=== PATIENT | female | born 1950 | race Caucasian/White ===

== ENCOUNTER 2016-12-19 07:32 | Inpatient (IN) | payer OTHER, BC ==
[2016-11-24 09:08] VITALS: BMI 24.0
--- NOTE | 2016-11-24 09:47 | PAT Medication Instructions ---
Service Date Nov 24, 2016. Current Home Medication List Acetaminophen (Tylenol), 650 MG PO PRN Ibuprofen (Advil), 400 MG PO PRN [Boswellian Complex], 1 TAB PO 3XWEEK Medication Instructions For Your Scheduled Surgery - Check with surgeon for instructions: Ibuprofen (Advil), 400 MG PO PRN - Hold the following medications 2 weeks prior to surgery: [Boswellian Complexoswellian Complex], 1 TAB PO 3XWEEK - Take the following medications the morning of surgery with a sip of water: Acetaminophen (Tylenol), 650 MG PO PRN (if needed) - Take the following medications as scheduled the night before surgery: Acetaminophen (Tylenol), 650 MG PO PRN (if needed) If you have any questions please call us at [phone] or [phone] or [phone]
[2016-11-24 10:37] LABS: BASO % 1.3 %; BASO ABS # 0.07 K/uL (0-0.2); COMPLETE YES; EOS % 4.7 %; HEMATOCRIT 43.5 % (37-47); LYMPH % 20.5 %; LYMPH ABS # 1.08 K/uL (1.2-3.4); MEAN CELL VOLUME 91.6 fL (80-100); MEAN CORPUSCULAR HEMOGLOBIN 30.1 pg (25-34); MEAN CORPUSCULAR HGB CONC 32.9 g/dl (32-36); MEAN PLATELET VOLUME 10.3 fL (7.4-10.4); NEUT % 63.5 %; PLATELET COUNT 235 K/uL (130-400); RED BLOOD COUNT 4.75 M/uL (4.2-5.4); WHITE BLOOD COUNT 5.28 K/uL (4.8-10.8)
[2016-11-24 10:43] LABS: URINE APPEARANCE CLEAR (CLEAR); URINE BILIRUBIN NEG (NEG); URINE COLOR YELLOW; URINE EPITHELIAL CELL AUTO >30 /lpf (0-5); URINE NITRITE NEG (NEG); URINE PH 7.5 (4.5-7.5); URINE SPECIFIC GRAVITY 1.016 (1.000-1.030); UROBILINOGEN NEG (NEG)
[2016-11-24 10:44] LABS: BUN/CREATININE RATIO 25.2 (10-20); CALCIUM 9.3 mg/dl (8.5-10.1); CREATININE 0.74 mg/dl (0.60-1.20); POTASSIUM 4.8 mmol/L (3.5-5.1)
[2016-11-24 10:45] LABS: INR 0.9 (0.9-1.1)
[2016-11-24 10:53] LABS: MANUAL MICROSCOPIC REQUIRED? NO; REVIEW REQ? NO
[2016-11-24 10:57] LABS: ESTIMATED AVERAGE GLUCOSE 103 mg/dl; HA1C FLAG Normal (Normal)
--- NOTE | 2016-11-24 11:01 | DIAGNOSTIC IMAGING REPORT ---
CHEST 2 VIEWS ROUTINE CLINICAL HISTORY: PAT preoperative evaluation COMPARISON STUDY: No previous studies for comparison. FINDINGS: The bones soft tissues and hemidiaphragms are normal. The cardiomediastinal silhouette is normal. The lungs are clear. The pulmonary vasculature is normal. IMPRESSION: Negative chest. The above report was generated using voice recognition software. It may contain grammatical, syntax or spelling errors. Electronically signed by: Walter Cole M.D. 11/24/2016 11:00 AM Dictated Date/Time: 11/24/2016 10:59 AM
--- NOTE | 2016-12-17 22:05 | HISTORY & PHYSICAL EXAMINATION ---
DATE OF ADMISSION: 12/19/2016 SUBJECTIVE CHIEF COMPLAINT: Left knee pain. HISTORY OF PRESENT ILLNESS: The patient is a 66-year-old female who complains of left knee pain. She describes the symptoms as being chronic and nontraumatic in nature. She states that the symptoms occur constantly and described as aching and sharp. She has tried cortisone injections, nonsteroidal anti-inflammatories and physical therapy with no relief. This affects her activities of daily living. She would like to proceed with a left total knee arthroplasty. PAST MEDICAL HISTORY: Significant for a left bundle branch block, anxiety, osteoarthritis and GERD. PAST SURGICAL HISTORY: Tonsillectomy, right total knee arthroplasty, and appendectomy. SOCIAL HISTORY: She drinks 1-2 beers a day. Denies smoking or tobacco use. Denies IV or illegal drug use. She lives in a [address] house and she is currently retired. FAMILY HISTORY: Noncontributory. ALLERGIES: CLINDAMYCIN AND SHE DEVELOPS A RASH. MEDICATIONS: lorazepam 0.5 mg 1-2 tablets every 6 hours as needed for anxiety. REVIEW OF SYSTEMS: She denies headaches, fevers, chills, double vision, blurry vision, sore throat, cough, chest pain, nausea, vomiting, diarrhea, constipation, numbness, tingling, fatigue, urinary difficulties, thoughts to harm herself or harm others depression. She is positive for left knee joint pain and joint stiffness. OBJECTIVE: GENERAL APPEARANCE: The patient is a 66-year-old female sitting in no acute distress. She is well dressed, well nourished. She is awake, alert and oriented x3. VITAL SIGNS: She is 5 feet 8 inches tall, 158 pounds. Blood pressure is 106/62. HEENT: Normocephalic, atraumatic. Extraocular movements are intact. Mucosa was moist. No septal deviation. NECK: Supple with no lymphadenopathy, no JVD, no thyromegaly. HEART: Regular rate and rhythm, no murmurs or gallops. LUNGS: Clear to auscultation. No wheezing or rhonchi. ABDOMEN: Soft, nontender, nondistended. Normal bowel sounds, no hepatosplenomegaly. EXTREMITIES: Paying particular attention to the left knee, she is able to actively extend to 0 degrees and actively flex to 100 degrees. She has medial joint line tenderness and ligaments are intact. NEUROLOGIC: Cranial nerves II-XII are intact. Pulses were compared bilaterally and were equal. IMAGING: X-rays of the left knee demonstrate severe osteoarthritic change of the medial compartment and bone on bone in medial compartment. IMPRESSION: Primary osteoarthritis of the left knee. PLAN: The patient is scheduled for a left total knee arthroplasty. This affects her activities of daily living and she has failed conservative therapies including cortisone injections, nonsteroidal anti-inflammatories and physical therapy. She would like to proceed with a left total knee arthroplasty. Risks and benefits to surgery were discussed with the patient and included but not limited to infection, DVT, pain, stiffness, need for revision surgeries, failure to relieve all symptoms, damage to blood vessels, damage to nerves, PE and and anesthesia risks were all discussed with the patient. She understands these risks and wishes to proceed. All questions were answered to her satisfaction. DVT prophylaxis will be aspirin 81 mg b.i.d. for 30 days. Discharge will be home with home health. RENNY
[~2016-12-19] VITALS: Ht 172.7 cm; Wt 71.7 kg
[2016-12-19] VITALS (7 sets, daily range): BP systolic 112–139; BP diastolic 68–87; PULSE 58–64; TEMP 34.8–36.8; O2SAT 97–100; Ht 172.7 cm; Wt 71.7 kg
[2016-12-19] MEDS: TRANEXAMIC ACID INJ 1,000 MG in SODIUM CHLORIDE 0.9% 100ML 100 ML IV SCH ×2 (06:30→08:43)
[~2016-12-19 07:32] MED LIST: ACET-1311 PO; ACETAMINOPHEN 500 MG TAB PO SCH; CEFAZOLIN 2000 MG/60 ML D5W 60 ML IV SCH; CeleBREX 200 MG CAP PO SCH; DEXAMETHASONE 4 MG TAB PO SCH; FAMOTIDINE 20 MG TAB PO SCH; FENTANYL CITRATE INJ 50 MCG/1 ML 2 ML VIAL ONE; GABAPENTIN 300 MG CAP PO SCH; IBUP-1050 PO; LACTATED RINGER'S 1000ML IV SCH; LACTATED RINGER'S 500 ML IV SCH; METOCLOPRAMIDE HCL 10 MG TAB PO SCH; MIDAZOLAM HCL 1 MG/ML 2ML VIAL ONE; ROPIVACAINE 5MG/ML 30 ML 150 MG, BUPIVACAINE/EPINEPHR 0.5% MPF 30 ML, KETOROLAC TROMETH... INFIL SCH; TRAMADOL HCL 50 MG TAB PO SCH; [UNRECOGNIZED DRUG - OTHER] PO
--- NOTE | 2016-12-19 07:56 | History & Physical Bridge Note ---
H&P Re-Evaluation Bridge Note: I have examined the patient, reviewed the History & Physical and in the interval since the performance of the History & Physical I have noted the following changes of clinical significance: No changes noted
[2016-12-19] MEDS ORDERED: BUPIVACAINE 0.5 % 5 MG/1 ML PF 10ML VIAL ONE (07:58)
[2016-12-19] MEDS ORDERED: BUPIVACAINE 0.25% 30 ML VIAL ONE (07:58)
[2016-12-19] MEDS ORDERED: ORTHO JOINT ANESTHETIC ONE (08:13)
[2016-12-19] MEDS ORDERED: POVIDONE-IODINE OP SOLN 30 ML BTL ONE (08:13)
[2016-12-19] MEDS ORDERED: BACITRACIN 50000 UNIT VIAL ONE (08:14)
[2016-12-19] MEDS ORDERED: EpHEDrine SULFATE INJ 50 MG/ML AMP IV PRN (08:45)
[2016-12-19] MEDS ORDERED: FENTANYL CITRATE INJ 50 MCG/1 ML 2 ML VIAL IV PRN (08:45)
[2016-12-19] MEDS ORDERED: ONDANSETRON INJ 2 MG/ML 2 ML VIAL IV PRN (08:45)
[2016-12-19] MEDS ORDERED: ATROPINE SULFATE 0.1 MG/ML 5ML SYR IV PRN (08:45)
[2016-12-19] MEDS ORDERED: MIDAZOLAM HCL 1 MG/ML 2ML VIAL ONE (09:13)
[2016-12-19] MEDS ORDERED: PROPOFOL IV EMULSION 10 MG/ML 20 ML VIAL IV ONE ×2 (09:59→10:11)
--- NOTE | 2016-12-19 10:39 | [facility] Operative Report ---
Operative Report Operative Date Dec 19, 2016. Pre-Operative Diagnosis Primary osteoarthritis of the left knee Post-Operative Diagnosis Primary osteoarthritis of the left knee Procedure(s) Performed Left Total Knee Arthroplasty Surgeon Dr. Steve Ocasio Financial Wellness Coach Surgeon(s) Adam Reynolds PA-C Estimated Blood Loss 50 mL Findings Above Specimens Permanent specimens A: Left knee bone and tissue Drains none Anesthesia spinal plus adductor canal block Complication(s) None Disposition Recovery Room / PACU Indications 66-year-old female with long-standing degenerative joint disease of left knee. She has failed conservative measures including injection and anti-inflammatory and rehabilitation. She has end-stage arthritis like to proceed with a left total knee arthroplasty. Description of Procedure Risks benefits and alternatives of surgery including but not limited to infection DVT pain stiffness need for surgery damage to blood vessels damage to nerves or risks of anesthesia were discussed with the patient and she wished to proceed. Patient was identified in the laterality was confirmed and marked. She received a preoperative antibiotic is also a spinal anesthetic and a adductor canal block. A well-padded tourniquet was applied and then the limb was prepped and draped in standard manner with ChloraPrep. The tourniquet was not utilized during the case. I made a standard anterior incision. I sharply incised the skin then utilized Bovie electrocautery as well as the aqua mantis to achieve hemostasis. I made a medial parapatellar arthrotomy immobilized the patella laterally. I then excised the anterior horns of the medial and lateral meniscus as well as the infrapatellar fat pad. I elevated a portion of the MCL off of the tibia. I then pinned into place a patient-matched distal femoral cutting guide and made my distal femoral resection. I then pinned into place a size the 5 in 1 cutting guide. I made my anterior, posterior and chamfer cuts. I then excised the cruciates and the remaining portions of the menisci. I then pinned into place a patient- matched tibial cutting guide and made my tibial resection. I then pinned into place the patient matched tibial cutting guide and used a alignment kenya to confirm rotation. I then cut for the post. Utilizing a lamina c 40a crew chief and I then removed posterior osteophytes off the femur. I then placed a trial femur into position and cut for the trochlear component. I then sequentially trialed the polyethylene until there was good soft tissue balancing and range of motion. I then prepared the patella with a freehand cut utilizing sagittal saw. I sized and drilled for the patella. There was good tracking to the patella no lateral release was needed. All the trial components were removed. The deep tissues were anesthetized with and ortho mix solution. Then with Simplex HV with gentamicin cement I cemented my definitive components. Definitive components, [employer] Journey 2: Femur 6 Tibia for Poly 10 Patella 35 oval A betadine soak was performed. The arthrotomy was closed with interrupted #1 Vicryl suture subcutaneous tissue was closed with interrupted 2-0 Vicryl suture. The skin was closed with Prineo. A sterile dressing was applied. All needle and sponge counts were correct at the end of the procedure patient was transferred to the PACU in stable condition without apparent complication. The PA-C was necessary for assistance with procedure for assistance in positioning, prepping, draping, retraction and closure. I attest to the content of the Intraoperative Record and any orders documented therein. Any exceptions are noted below.
[2016-12-19] MEDS ORDERED: MAGNESIUM HYDROXIDE SUSP 30 ML UDC PO PRN (11:15)
[2016-12-19] MEDS ORDERED: ALUMINUM/MAGNESIUM/SIMETH (MAALOX MAX) 30 ML UDC PO PRN (11:15)
[2016-12-19] MEDS ORDERED: MoRPHine SULFATE 4 MG/ML 1 ML CARP\\VIAL IV PRN (11:15)
[2016-12-19] MEDS ORDERED: BISACODYL 10 MG SUPP PR PRN (11:15)
[2016-12-19] MEDS ORDERED: MoRPHine SULFATE 2 MG/ML CARP IV PRN (11:15)
[2016-12-19] MEDS ORDERED: OXYCODONE HCL IR 5 MG TAB (IMMEDIATE RELEASE) PO PRN (11:15)
--- NOTE | 2016-12-19 11:33 | Anesthesiology Progress Note ---
Anesthesia Post Op Note Date & Time Dec 19, 2016 at 11:33 Vital Signs Pain Intensity: 0 Vital Signs Past 12 Hours Date Time Temp Pulse Resp B/P (MAP) Pulse Ox O2 Delivery O2 Flow Rate FiO2 12/19/16 11:25 59 18 116/67 100 Oxymask 10 12/19/16 11:15 59 18 122/68 100 Oxymask 10 12/19/16 11:05 36.1 63 18 118/62 97 Oxymask 10 12/19/16 08:05 36.4 61 16 129/87 100 Room Air Notes Mental Status: alert / awake / arousable, participated in evaluation Pt Amnestic to Procedure: Yes Nausea / Vomiting: adequately controlled Pain: adequately controlled Airway Patency, RR, SpO2: stable & adequate BP & HR: stable & adequate Hydration State: stable & adequate Neuraxial Anesthesia: was administered, sensory block is resolving Anesthetic Complications: no major complications apparent
--- NOTE | 2016-12-19 11:38 | DIAGNOSTIC IMAGING REPORT ---
LEFT KNEE 1 OR 2 VIEWS ROUTINE CLINICAL HISTORY: 66 years-old Female presenting with degenerative change of the left knee status post arthroplasty. TECHNIQUE: Frontal and lateral views of the left knee were obtained. COMPARISON: None. FINDINGS: Postsurgical changes of total left knee arthroplasty with patellar resurfacing. Intra-articular and soft tissue emphysema noted. No hardware complication. No acute fracture or malalignment. Two stippled calcific lesions noted more proximally in the left femur. IMPRESSION: 1. Expected postsurgical changes status post left total knee arthroplasty with patellar resurfacing. 2. Two calcified lesions in the more proximal left femur are most suggestive of chondroid lesions. Electronically signed by: Steve Toussaint M.D. 12/19/2016 11:37 AM Dictated Date/Time: 12/19/2016 11:35 AM
[2016-12-19] MEDS: KETOROLAC TROMETHAMINE 15 MG/ML VIAL IV. SCH ×3 (12:57→23:36)
[2016-12-19] MEDS: D5W AND 1/2NSS + 20MEQ KCL 1,000 ML IV SCH ×2 (13:05→22:16)
[2016-12-19] MEDS: FERROUS GLUCONATE 324 MG TAB PO SCH ×2 (13:57→18:12)
[2016-12-19] MEDS: CEFAZOLIN IV 1,000 MG in DEXTROSE 5% 50ML 50 ML IV SCH ×2 (15:34→23:36)
[2016-12-19] MEDS: ACETAMINOPHEN 500 MG TAB PO SCH ×2 (15:35→23:37)
[2016-12-19] MEDS: ASPIRIN 81 MG ECTAB PO SCH (20:51)
[2016-12-19] MEDS: OXYCODONE HCL 10 MG TABCR (OXYCONTIN) PO SCH (20:51)
[2016-12-19] MEDS: DOCUSATE SODIUM 100 MG CAP PO SCH (20:52)
[2016-12-19] MEDS: SENNA 8.6 MG TAB PO SCH (20:52)
[2016-12-20 03:20] VITALS: BP 104/62; PULSE 60; TEMP 36.4; O2SAT 97
[2016-12-20] MEDS: KETOROLAC TROMETHAMINE 15 MG/ML VIAL IV. SCH (05:25)
[2016-12-20] MEDS: ONDANSETRON INJ 2 MG/ML 2 ML VIAL IV PRN ×2 (06:18→23:37)
[2016-12-20 06:32] LABS: HEMATOCRIT 35.3 % (37-47); MEAN CELL VOLUME 88.3 fL (80-100); MEAN PLATELET VOLUME 10.7 fL (7.4-10.4); PLATELET COUNT 194 K/uL (130-400); WHITE BLOOD COUNT 10.29 K/uL (4.8-10.8)
[2016-12-20 07:02] LABS: BUN/CREATININE RATIO 18.3 (10-20); CALCIUM 8.6 mg/dl (8.5-10.1); CREATININE 0.82 mg/dl (0.60-1.20); POTASSIUM 4.4 mmol/L (3.5-5.1)
[2016-12-20 07:34] VITALS: BP 115/65; PULSE 56; TEMP 36.5; O2SAT 100
--- NOTE | 2016-12-20 08:26 | Orthopedic Progress Note ---
Orthopedic Progress Note Date of Service Dec 20, 2016. Subjective Post OP Day: 1 Reports: feeling well, Denies: chest pain, SOB, nausea / vomiting, light headedness, calf pain Additional Notes: VOMITED EARLY THIS AM. LIKELY FROM MEDS ON EMPTY STOMACH. FEELING FINE NOW. Objective calves soft nontender, N/V intact, dressing C/D/I, A&O x3, toes mobile Date Time Temp Pulse Resp B/P (MAP) Pulse Ox O2 Delivery O2 Flow Rate FiO2 12/20/16 07:34 36.5 56 18 115/65 (82) 100 Room Air 12/20/16 07:30 Room Air 12/20/16 03:20 36.4 60 18 104/62 (76) 97 Room Air 12/19/16 23:40 Room Air 12/19/16 23:12 36.4 61 18 117/68 (84) 98 Room Air 12/19/16 19:15 36.5 63 18 112/69 (83) 97 Room Air 12/19/16 15:30 Nasal Cannula 2.0 12/19/16 14:58 34.8 64 18 118/69 (85) 99 Nasal Cannula 3.0 12/19/16 13:51 36.6 60 17 139/82 (101) 100 Nasal Cannula 3.0 12/19/16 13:02 36.8 58 18 134/85 (101) 100 Nasal Cannula 3.0 12/19/16 12:00 Nasal Cannula 2.0 12/19/16 12:00 36.3 60 16 131/78 (95) 100 Nasal Cannula 2.0 12/19/16 12:00 Nasal Cannula 2.0 12/19/16 11:45 36.1 59 18 122/70 100 Nasal Cannula 2 12/19/16 11:35 36.1 59 18 124/69 100 Nasal Cannula 2 12/19/16 11:25 59 18 116/67 100 Oxymask 10 12/19/16 11:15 59 18 122/68 100 Oxymask 10 12/19/16 11:05 36.1 63 18 118/62 97 Oxymask 10 Laboratory Results 24 Hours: Test 12/20/16 06:02 Hematocrit 35.3 % Hemoglobin 12.0 g/dL Assessment & Plan Assessment: POD#1 SP LEFT TKA Inhouse Planning Pain Management: Celebrex, PO Tylenol, Oxy IR DVT Prophylaxis: TEDs, SCDs, ASA Discharge Planning Discharge Planning: home with home health (POSSIBLE DC HOME TODAY IF TOLERATES PT AND PAIN MEDS)
--- NOTE | 2016-12-20 08:27 | Discharge Instructions ---
Discharge Instructions Date of Service Dec 20, 2016. Admission Reason for Admission: Left Knee Osteoarthritis Discharge Discharge Diagnosis / Problem: SP LEFT TKA Discharge Goals Goal(s): Decrease discomfort, Improve function, Increase independence Activity Recommendations Activity Limitations: per Instructions/Follow-up section . Instructions / Follow-Up Instructions / Follow-Up ACTIVITY RECOMMENDATIONS: SELF CARE INSTRUCTIONS AFTER TOTAL KNEE REPLACEMENT A. You may need to continue a physical therapy program after discharge from the hospital. There are several options available to you. Your doctor will assist you in selecting the best one for you. 1. An out-patient facility 2 to 3 times a week for therapy or home therapy. 2. Continue working on all exercises taught to you in the hospital. Your goals should be to increase bending of your knee to 90 degrees and beyond and to fully straighten your knee. B. You may progress at your own pace from walking with a walker or crutches to a cane; then to no assistive devices. C. Make walking a part of your daily routine. Be up as much as comfortable with rest periods throughout the day. Rest with leg elevation is very important. Use the ice wrap frequently for the first 3-4 weeks. D. There are no restrictions on activities. You may ride in a car, shop, participate in assistance specialist and all social activities. E. Wear the long elastic stockings (CARMEN hose) 20 hours a day for 2 weeks after surgery. They can be removed several times a day for laundering and for a bath. F. You may shower, no tub baths until cleared by your doctor. SPECIAL CARE INSTRUCTIONS: VERY IMPORTANT TO READ AND REVIEW A. There are a few signs you need to watch for after you are home. Call [facility] if you notice any of the followin. Increased severe knee pain. Some pain is expected especially when you exercise. 2. Increased swelling in your leg or knee; pain or swelling of the calf muscle in either lower leg. 3. Any fluid drainage from the incision. 4. Shortness of breath or chest pain. B. Please call [facility] at if you have any concerns or questions about your operation or recovery. The doctor or his nurse will return your call promptly. C. You must take antibiotics before dental work, bladder, bowel or other surgery. Your doctor will provide you with a permanent care to carry describing this precaution. IMPORTANT: * REMEMBER TO TAKE ASPIRIN, 81 MG, TWICE DAILY FOR 4 WEEKS UNLESS OTHERWISE DIRECTED. THIS IS YOUR BLOOD THINNER. * HIGH RISK PATIENTS MAY BE PRESCRIBED A STRONGER BLOOD THINNER. THIS WILL BE PROVIDED AT DISCHARGE. * CALL IF INCREASED PAIN, REDNESS, DRAINAGE OR FEVER GREATER THAT 101. * WEAR CARMEN HOSE 20 HOURS PER DAY FOR 2 WEEKS. * YOU MAY HAVE A LARGE BAND-AID LIKE DRESSING (SILVERON). THIS WILL REMAIN ON YOUR INCISION FOR 7 DAYS, THEN CAN BE REMOVED. IF INCISION IS LEAKING THROUGH DRESSING, CALL THE OFFICE . FOLLOW UP VISIT: If appointment is not already scheduled: Please call [facility] to make a follow-up appointment for 2 weeks after your surgery at . Current Hospital Diet Patient's current hospital diet: Regular Diet Discharge Diet Recommended Diet: Regular Diet Procedures Procedures Performed: Left Total Knee Arthroplasty Pending Studies Studies pending at discharge: no Laboratory Results Hemoglobin A1c Test 11/24/16 09:55 Range/Units Estimated Average Glucose 103 mg/dl Hemoglobin A1c 5.2 4.5-5.6 % Medical Emergencies . Who to Call and When: Medical Emergencies: If at any time you feel your situation is an emergency, please call 911 immediately. . Non-Emergent Contact Non-Emergency issues call your: Surgeon . "Provider Documentation" section prepared by Alma Moreno. . VTE Core Measure Inpt VTE Proph given/why not?: Other Anticoagulation, T.E.D. Stockings, SCD's [place] Drug Monitoring Program Search Results: patient reviewed within database, no issues identified
[2016-12-20] MEDS ORDERED: RXC5 PO (08:32)
[2016-12-20] MEDS ORDERED: ONDA8TAB6 PO (08:32)
[2016-12-20] MEDS ORDERED: SNK PO (08:32)
[2016-12-20] MEDS ORDERED: ASPEC81 PO (08:32)
[2016-12-20] MEDS ORDERED: ACET-24 PO (08:32)
--- NOTE | 2016-12-20 08:46 | Anesthesiology Progress Note ---
Anesthesia Post Op Note Date & Time Dec 20, 2016 at 08:46 Vital Signs Vital Signs Past 12 Hours Date Time Temp Pulse Resp B/P (MAP) Pulse Ox O2 Delivery O2 Flow Rate FiO2 12/20/16 07:34 36.5 56 18 115/65 (82) 100 Room Air 12/20/16 07:30 Room Air 12/20/16 03:20 36.4 60 18 104/62 (76) 97 Room Air 12/19/16 23:40 Room Air 12/19/16 23:12 36.4 61 18 117/68 (84) 98 Room Air Notes Mental Status: alert / awake / arousable, participated in evaluation Pt Amnestic to Procedure: Yes Nausea / Vomiting: adequately controlled Pain: adequately controlled Airway Patency, RR, SpO2: stable & adequate BP & HR: stable & adequate Hydration State: stable & adequate Neuraxial Anesthesia: was administered, sensory block resolved Anesthetic Complications: no major complications apparent
[2016-12-20] MEDS: D5W AND 1/2NSS + 20MEQ KCL 1,000 ML IV SCH (08:57)
[2016-12-20] MEDS: PANTOprazole SOD 40 MG TAB PO SCH (08:59)
[2016-12-20] MEDS ORDERED: MULTIVITAMIN TAB PO SCH (09:00)
[2016-12-20] MEDS: ACETAMINOPHEN 500 MG TAB PO SCH ×3 (09:55→23:32)
[2016-12-20] MEDS: DOCUSATE SODIUM 100 MG CAP PO SCH ×2 (09:56→20:49)
[2016-12-20] MEDS: ASPIRIN 81 MG ECTAB PO SCH ×2 (09:56→20:49)
[2016-12-20] MEDS: FERROUS GLUCONATE 324 MG TAB PO SCH ×2 (09:57→12:30)
[2016-12-20] MEDS: OXYCODONE HCL 10 MG TABCR (OXYCONTIN) PO SCH (09:57)
[2016-12-20 11:12] VITALS: BP 127/83; PULSE 53; TEMP 36.4; O2SAT 99
[2016-12-20 16:15] VITALS: BP 118/65; PULSE 60; TEMP 36.4; O2SAT 99
[2016-12-20] MEDS: SENNA 8.6 MG TAB PO SCH (20:49)
[2016-12-20] MEDS: TRAMADOL HCL 50 MG TAB PO PRN ×2 (20:50→22:12)
[2016-12-20 23:01] VITALS: BP 133/62; PULSE 66; TEMP 36.7; O2SAT 97
[2016-12-21 06:49] VITALS: BP 111/64; PULSE 64; TEMP 36.4; O2SAT 98
--- NOTE | 2016-12-21 07:41 | Orthopedic Progress Note ---
Orthopedic Progress Note Date of Service Dec 21, 2016. Subjective Post OP Day: 2 Reports: complaints (nauseated and blacks out when trying to stand up. ), nausea / vomiting, light headedness, Denies: chest pain, SOB, calf pain Objective calves soft nontender, capillary refill less than 2 sec., dressing C/D/I, A&O x3 , toes mobile Date Time Temp Pulse Resp B/P (MAP) Pulse Ox O2 Delivery O2 Flow Rate FiO2 12/21/16 06:49 36.4 64 16 111/64 (80) 98 Room Air 12/20/16 23:01 36.7 66 16 133/62 (85) 97 Room Air 12/20/16 22:47 Room Air 12/20/16 16:15 36.4 60 18 118/65 (82) 99 Room Air 12/20/16 15:50 Room Air 12/20/16 11:12 36.4 53 18 127/83 (98) 99 Room Air Assessment & Plan Assessment: POD#2 SP LEFT TKA Plan: Will order CBC to check blood levels Will check orthostatic pressures. PT/OT Discharge - Home with HH Inhouse Planning Pain Management: Celebrex, PO Tylenol, Oxy IR DVT Prophylaxis: TEDs, SCDs, ASA Discharge Planning Discharge Planning: home with home health (POSSIBLE DC HOME TODAY IF TOLERATES PT AND PAIN MEDS)
[2016-12-21] MEDS: DOCUSATE SODIUM 100 MG CAP PO SCH ×2 (07:59→20:43)
[2016-12-21] MEDS: ONDANSETRON INJ 2 MG/ML 2 ML VIAL IV PRN (07:59)
[2016-12-21] MEDS: ASPIRIN 81 MG ECTAB PO SCH ×2 (07:59→20:42)
[2016-12-21] MEDS: ACETAMINOPHEN 500 MG TAB PO SCH ×3 (07:59→23:52)
[2016-12-21] MEDS: PANTOprazole SOD 40 MG TAB PO SCH (07:59)
[2016-12-21 08:00] LABS: HEMATOCRIT 33.2 % (37-47); MEAN CELL VOLUME 89.5 fL (80-100); MEAN CORPUSCULAR HEMOGLOBIN 30.2 pg (25-34); MEAN CORPUSCULAR HGB CONC 33.7 g/dl (32-36); MEAN PLATELET VOLUME 10.9 fL (7.4-10.4); PLATELET COUNT 188 K/uL (130-400); RED BLOOD COUNT 3.71 M/uL (4.2-5.4); WHITE BLOOD COUNT 6.11 K/uL (4.8-10.8)
[2016-12-21 09:00] VITALS: BP_SYST 106; BP_SYST 110; BP_SYST 113; BP_DIAS 57; BP_DIAS 64; BP_DIAS 71
[2016-12-21] MEDS: TRAMADOL HCL 50 MG TAB PO PRN ×2 (13:27→18:53)
[2016-12-21 15:30] VITALS: BP 110/65; PULSE 68; TEMP 36.5; O2SAT 98
[2016-12-21] MEDS: SENNA 8.6 MG TAB PO SCH (20:43)
[2016-12-21 23:34] VITALS: BP 119/64; PULSE 66; TEMP 36.3; O2SAT 95
[2016-12-22] MEDS: TRAMADOL HCL 50 MG TAB PO PRN (05:12)
--- NOTE | 2016-12-22 07:00 | Orthopedic Progress Note ---
Orthopedic Progress Note Date of Service Dec 22, 2016. Subjective Post OP Day: 3 Reports: feeling well, nausea / vomiting (only a little but much better compared to yesterday), pain controlled w PO medications, Denies: complaints, chest pain, SOB, calf pain Additional Notes: Patient states she is feeling much better compared to yesterday and the day before. She still gets a little light headed when she stands up but overall better. Objective calves soft nontender, N/V intact, capillary refill less than 2 sec., incision C /D/I, A&O x3, toes mobile Date Time Temp Pulse Resp B/P (MAP) Pulse Ox O2 Delivery O2 Flow Rate FiO2 12/21/16 23:45 Room Air 12/21/16 23:34 36.3 66 16 119/64 (82) 95 Room Air 12/21/16 15:30 36.5 68 18 110/65 (80) 98 Room Air 12/21/16 13:29 Room Air 12/21/16 09:00 110/71 (84) 113/57 (75) 106/64 (78) 12/21/16 07:40 Room Air Laboratory Results 24 Hours: Test 12/21/16 07:46 Hematocrit 33.2 % Hemoglobin 11.2 g/dL Assessment & Plan Assessment: POD#3 SP LEFT TKA Plan: PT/OT Discharge - Home with Inhouse Planning Pain Management: Celebrex, Ultram, PO Tylenol DVT Prophylaxis: TEDs, SCDs, ASA Discharge Planning Discharge Planning: home with home health (POSSIBLE DC HOME TODAY IF TOLERATES PT AND PAIN MEDS) Pain Management: Ultram, PO Tylenol, Oxy IR DVT Prophylaxis: TEDs, ASA Therapy: Physical Therapy
[2016-12-22 07:34] VITALS: BP 131/74; PULSE 62; TEMP 36.4; O2SAT 96
[2016-12-22] MEDS: DOCUSATE SODIUM 100 MG CAP PO SCH (09:08)
[2016-12-22] MEDS: ACETAMINOPHEN 500 MG TAB PO SCH (09:08)
[2016-12-22] MEDS: ASPIRIN 81 MG ECTAB PO SCH (09:09)
[2016-12-22] MEDS: PANTOprazole SOD 40 MG TAB PO SCH (09:09)
[2016-12-22 10:33] VITALS: BP 118/67
[2016-12-22 13:42] VITALS: BP 131/74; PULSE 62; TEMP 36.4; O2SAT 96
[2016-12-22 15:39] VITALS: BP 156/79; PULSE 71; TEMP 36.8; O2SAT 100
--- NOTE | 2016-12-27 20:26 | DISCHARGE SUMMARY ---
DISCHARGE DIAGNOSIS: Degenerative joint disease, left knee. SECONDARY DIAGNOSES: Left bundle branch block, anxiety, osteoarthritis, gastroesophageal reflux disease. CONSULTS: None. COMPLICATIONS: None. PROCEDURES: Left total knee arthroplasty performed by Dr. Ocasio on 12/19/2016. BRIEF HISTORY: As dictated in history and physical. HOSPITAL SUMMARY: The patient was admitted on the above noted date and had the above noted surgery performed which she tolerated well. On the first postoperative day, she was feeling well. She had vomited earlier that morning, likely from taking medications on an empty stomach, she was feeling good at the time of the visit. Calves were soft and nontender, neurovascularly intact. Dressings clean, dry and intact. Toes were mobile. Vital signs were stable. She was afebrile. Hemoglobin was 12.0. She was started on physical therapy protocol and continued on DVT prophylaxis, pain management and antiemetics if needed. By her second postoperative day, she was having some nausea and almost passing out when trying to stand up, she had some lightheadedness. Calves were soft and nontender. Neurovascularly intact. Dressings clean, dry and intact. Toes were mobile. Vital signs were stable and she was afebrile. Hemoglobin was 11.2 and remaining stable. By her third postoperative day, she was feeling okay and she still had somewhat of a little bit nausea compared to the previous days, but was getting better and pain was controlled. She states that she was feeling much better compared to the previous day. She was still getting somewhat lightheaded when she stood up, but was overall better. Calves were soft, nontender, neurovascularly intact. Incision was clean, dry and intact. Toes were mobile. Vital signs were stable and she was afebrile. She was continued on her PT protocol. In physical therapy, she ambulated little over 210 feet with a rolling walker. She had no loss of balance, but was feeling somewhat lightheaded throughout her gait at times. She did sit down for a brief moment in the wheelchair and then soon got up and ambulated back to her room without any difficulty. She complained of hot flashes off and on, which was felt to be secondary to her opioids. She was otherwise progressing well. Her range of motion was 96 degrees. She was otherwise remaining stable and it was felt she could be discharged to home on 12/22/2016. For further review, please see chart. LABORATORY AND X-RAY DATA: As per chart. DISCHARGE INSTRUCTIONS: The patient was discharged to home in satisfactory condition on 12/22/2016. DIET: Regular. ACTIVITY: Follow TK instruction sheets and special care instructions as noted. FOLLOWUP: Follow up with Dr. Ocasio in 2 weeks. The patient to call for appointment if one has not been made for you. DISCHARGE MEDICATIONS: Acetaminophen 1000 mg p.o. q. 8 hours, aspirin 81 mg p.o. b.i.d., Zofran 8 mg p.o. q. 8 hours p.r.n., oxycodone 5-10 mg p.o. q. 4 hours p.r.n., senna 17.2 mg p.o. at bedtime. Resume home meds as listed and stop taking ibuprofen and stop taking the acetaminophen tablet labeled 325 mg.
== END 2016-12-22 16:50 | disposition home health service (06) | DRG 470 ==
LOC: C.ACU 07:32 → C.3E 07:53 → ENRESERV 11:43
PROVIDERS: ADMIT Orthopaedic Surgery; ATTEND Orthopaedic Surgery
PROC: 0SRD0J9 Replacement of Left Knee Joint with Synthetic Substitute, Cemented, Open Approach (ICD-10-PCS; principal; 2016-12-19 09:30)
DX: M17.12 Unilateral primary osteoarthritis, left knee (principal); K21.9 Gastro-esophageal reflux disease without esophagitis; F41.9 Anxiety disorder, unspecified; I44.7 Left bundle-branch block, unspecified